=== PATIENT | female | born 1975 | race Caucasian/White ===

== ENCOUNTER 2018-03-12 13:07 | Emergency (ER) | payer BC ==
[~2018-03-12] VITALS: Ht 182.9 cm; Wt 83.9 kg
== END 2018-03-12 13:18 | disposition home or self-care (01) ==
LOC: ED 13:07
DX: R22.0 Localized swelling, mass and lump, head (principal); F17.200 Nicotine dependence, unspecified, uncomplicated

== ENCOUNTER 2023-08-25 10:49 | Emergency (ER) | payer OTHER ==
[~2023-08-25] VITALS: Ht 182.9 cm; Wt 98.2 kg
[2023-08-25 12:10] VITALS: BP 163/105
[2023-08-26 09:03] LABS: HIV 1,2 COMBO ANTIGEN/ANTIBODY Negative (Negative)
[2023-08-26 11:03] LABS: HEPATITIS BE ANTIGEN Negative (Negative)
[2023-08-26 11:24] LABS: HEPATITIS BE ANTIBODY Negative (Negative)
[2023-08-26 15:54] LABS: HEPATITIS C AB CIA INTERP Negative (Negative); HEPATITIS C ANTIBODY CIA INDEX 0.04 IV (())
== END 2023-08-25 12:11 | disposition home or self-care (01) ==
LOC: ED 10:49
PROVIDERS: Emergency Medicine
DX: S61.210A Laceration without foreign body of right index finger without damage to nail, initial encounter (principal); F17.200 Nicotine dependence, unspecified, uncomplicated; W23.0XXA Caught, crushed, jammed, or pinched between moving objects, initial encounter
CPT/HCPCS: 36415; 86707; 86803; 87350; 90471; 90715; 99283

== ENCOUNTER 2024-02-22 13:05 | Emergency (ER) | payer OTHER ==
[~2024-02-22] VITALS: Ht 182.9 cm; Wt 95.7 kg
[2024-02-22 17:02] VITALS: BP 131/95
== END 2024-02-22 16:59 | disposition home or self-care (01) ==
LOC: ED 13:05
DX: S63.501A Unspecified sprain of right wrist, initial encounter (principal); F17.200 Nicotine dependence, unspecified, uncomplicated; W01.190A Fall on same level from slipping, tripping and stumbling with subsequent striking against furniture, initial encounter
CPT/HCPCS: 73110; 99283-25

== ENCOUNTER 2024-08-16 18:23 | Day surgery (SDC) | payer OTHER ==
[~2024-08-16] VITALS: Ht 182.9 cm; Wt 97.8 kg
[~2024-08-16 18:23] MED LIST: SEVOFLURANE 250 ML BTL INH ONE
[2024-08-16] MEDS ORDERED: GLUCAGON,HUMAN RECOMBINANT 1 MG/ML VIAL IV ONE (18:45)
[2024-08-16] MEDS ORDERED: ondansetron HCL 4 MG/2 ML VIAL IV ONE (18:45)
[2024-08-16] MEDS ORDERED: MIDAZOLAM HCL 2 MG/2 ML VIAL ONE (20:02)
[2024-08-16] MEDS ORDERED: propofoL 200 MG/20 ML VIAL ONE (20:02)
[2024-08-16] MEDS ORDERED: SUCCINYLCHOLINE IN 0.9% NACL 200 MG/10 ML SYRINGE ONE (20:02)
[2024-08-16] MEDS ORDERED: fentaNYL citrate 100 MCG/2 ML VIAL ONE (20:02)
[2024-08-16] MEDS ORDERED: LIDOCAINE HCL 2% 5 ML SDV ONE (20:02)
[2024-08-16] MEDS ORDERED: ondansetron HCL 4 MG/2 ML VIAL ONE ×2 (20:02→20:16)
[2024-08-16] MEDS ORDERED: DEXAMETHASONE SOD PHOS 4 MG/ML VIAL ONE (20:16)
--- NOTE | 2024-08-16 20:52 | NUR ---
08/16/242051 CASS CURRIE 2030 PT ARRIVED TO PACU VIA STREACHER. REPORT TAKEN FROM [facility]. PT HAS ORAL AIRWAY IN PLACE, PT HAS 6L OF OXYGEN VIA FACE MASK. PT NON AROUSABLE TO VERBAL AND TACTILE STIMULI. PT REQUIRES JAW THRUSTING INTERMITTENTLY TO MAINTAIN AIRWAY PATIENCY. ALL MONITORS ATTACHED. 2040 PT RESPONSIVE TO TACTILE STIMULI. PT ABLE TO FOLLOW COMMANDS TO OPEN MOUTH TO REMOVE ORAL AIRWAY. PT REMAINS ON 6L VIA FACE MASK. PT BREATHING EQUAL AND UNLABORED. PT ABLE TO ANSWER QUESTIONS ABOUT PAIN. PT REPORTS NO PAIN AT THIS TIME. 2049 OXYGEN REMOVED FROM PT, PT ON RA. PT O2 SAT STAYING ABOVE 90% ON RA. PT RESPONSIVE TO VERBAL STIMULI. PT REPORTING NO PAIN.
[2024-08-16] MEDS ORDERED: LACTATED RINGER'S 1,000 ML IV SCH (21:00)
[2024-08-16] MEDS ORDERED: PANTOPRAZOLE SODIUM 40 MG/10 ML VIAL IV ONE (21:15)
--- NOTE | 2024-08-16 21:30 | NUR ---
PATIENT ARRIVED TO THE FLOOR VIA STRETCHER. PATIENT ABLE TO SLIDE FROM STRETCHER TO HOSPITAL BED. REPORT RECEIVED. PATIENT DENIES ANY PAIN OR NAUSEA. PATIENT PROVIDE ICE WATER. NO FURTHER NEEDS. NOTED. CALL LIGHT IN REACH.
[2024-08-16 21:31] VITALS: BP 118/77
--- NOTE | 2024-08-16 21:56 | NUR ---
PATIENT IS RESTING IN BED. TITRATED TO RA. PATIENT DENIES ANY PAIN OR NAUSEA. PATIENT DENIES THE NEED TO VOID AT THIS TIME. PATIENT PROVIDED A SNACK. NO FURTHER NEEDS NOTED. CALL LIGHT IN REACH.
--- NOTE | 2024-08-16 22:10 | NUR ---
PATIENT IS RESTING IN BED EATING PUDDING. PATIENT DENIES ANY PAIN OR NAUSEA. PATIENT DENIES THE NEED TO VOID. NO FURTHER NEEDS NOTED. CALL LIGHT IN REACH.
--- NOTE | 2024-08-16 22:30 | NUR ---
PATIENT UP TO BR A SBA. PATIENT IS STEADY ON HER FEET. PATIENT ABLE TO VOID. PATIENT IS BACK IN BED RESTING. PLACED CALL TO PATIENTS .
[2024-08-16 22:54] VITALS: BP 122/76
--- NOTE | 2024-08-16 23:13 | NUR ---
PATIENT ABLE TO VOID. PATIENTS IV DC'D. DC INSTUCTIONS PROVIDED AND ALL QUESTIONS ANSWERED. PATIENTS HERE TO DRIVE PATIENT HOME. PATIENT TRANSPORTED BY WHEELCHAIR TO CAR. ALL BELONGINGS WITH PATIENT.
[2024-08-17] MEDS ORDERED: PANTOPRAZOLE SODIUM 40 MG TABEC PO SCH (09:00)
--- NOTE | 2024-08-19 14:32 | PATH ---
[facility] [address] [place] [address] Signed SPECIMEN(S): A LOWER ESOPHAGUS BIOPSY SPECIMEN(S): B MIDDLE ESOPHAGUS BIOPSY SPECIMEN SOURCE: A. LOWER ESOPHAGUS BIOPSY B. MIDDLE ESOPHAGUS BIOPSY CLINICAL HISTORY: Food bolus, esophageal obstruction cleared FINAL PATHOLOGIC DIAGNOSIS: A. Lower esophagus biopsy: - Esophageal and gastric mucosa with reactive epithelial features, negative for specialized intestinal metaplasia or dysplasia. - Negative for significantly increased epithelial eosinophils. B. Mid esophageal biopsy: - Benign esophageal epithelium, negative for significantly increased epithelial eosinophils. JVR:smn MICROSCOPIC EXAMINATION: Histologic sections of all submitted blocks are examined by light microscopy. These findings, together with the gross examination, support the pathologic diagnosis. GROSS DESCRIPTION: A. The specimen, labeled and designated "Stef, lower esophagus biopsy," is received in formalin and consists of two stone soft tissue fragments, ranging from 0.4-0.5 cm. Entirely submitted in (A1). B. The specimen, labeled and designated "Stef, middle esophagus biopsy," is received in formalin and consists of ten stone soft tissue fragments, ranging from 0.1-0.9 cm. Entirely submitted in (B1). VB (under the direct supervision of a pathologist) The Gross Description was prepared using a voice recognition system. The report was reviewed for accuracy; however, sound-alike word errors, addition and/or deletions may occur. If there is any question about this report, please contact Client Services. PERFORMING LABORATORY: Technical component was performed by [facility], [address] [place] [id number] (CLIA# [id number]). Professional interpretation was PATIENT NAME: KEVIN VASQUEZ PATHOLOGY DATE OF : 71 REPORT #: [id number] PHYSICIAN: [facility] PCP: BELGICA DILL MD REPORT IS CONFIDENTIAL AND NOT TO BE RELEASED WITHOUT AUTHORIZATION [facility] [address] [place], [place] [address] Signed performed by [facility] - [address] [address] (CLIA#: [id number]). Diagnostician: Flaquito Kaiser MD Pathologist Electronically Signed 08/19/2024 Copies: ~ PATIENT NAME: KEVIN VASQUEZ PATHOLOGY DATE OF : 71 REPORT #: [id number] PHYSICIAN: [facility] PCP: BELGICA DILL MD REPORT IS CONFIDENTIAL AND NOT TO BE RELEASED WITHOUT AUTHORIZATION
--- NOTE | 2024-08-20 12:25 | CONS ---
[facility] [address] [place], [place] [address] Signed DATE OF CONSULTATION: 08/16/2024 REQUESTING PHYSICIAN: Dr. Nagel and Dr. Stephon Fields. PROBLEM: Esophageal obstruction due to steak. HISTORY OF PRESENT ILLNESS: This 49-year-old white woman is accompanied by her and presented to the emergency room within 2 hours of ingestion of her 1st bite of a meal, which happened to be a steak. She had immediate obstruction with hypersalivation. She presented to the emergency room in some significant distress, initially was thought possibly to have had aspiration, but ultimately this proved not to be the case, but rather an obstruction of the esophagus. She has persistent hypersalivation despite administration of glucagon. She has had an episode like this in the past, which she was able to spontaneously clear the obstructive food bolus. She denies ongoing reflux type symptoms. She denies other medical problems as well. SOCIAL HISTORY: She is accompanied by her . She lives in [place]. REVIEW OF SYSTEMS: She denies any shortness of breath or chest pain. She has had no hematemesis. PHYSICAL EXAMINATION: GENERAL: A very uncomfortable 49-year-old white woman with significant hypersalivation, but no hematemesis. HEENT: She has no crepitus on clinical exam at this time. CHEST: Shows normal respiratory excursion. ABDOMEN: She shows no evidence of obesity. ASSESSMENT: The patient has obstruction of the esophagus, likely related to steak ingestion. Whether or not she has an actual stricture or a dysmotility issue as the underlying problem of her obstruction is uncertain. I have recommended general anesthesia and upper endoscopy as promptly as possible to remove the foreign body. She denies any drug use or alcohol use and has no prior history of complete obstruction, but does have symptoms of dysphagia from the past. The risk of bleeding, infection, perforation, and failure to cure the problem have been reviewed with her in detail. She understands and wished to proceed. Electronically Signed By: BERTRAND CHOI MD 08/20/24 1225 PATIENT NAME: KEVIN VASQUEZ CONSULTATION DATE OF : 71 REPORT #: [id number] PHYSICIAN: BERTRAND CHOI MD PCP: BELGICA DILL MD REPORT IS CONFIDENTIAL AND NOT TO BE RELEASED WITHOUT AUTHORIZATION [address] [address] Signed Bertrand Choi MD JM/MODL /[id number] cc: Dr. Shona Fields Copies: ~ Electronically Signed By: BERTRAND CHOI MD 08/20/24 1225 PATIENT NAME: KEVIN VASQUEZ CONSULTATION DATE OF : 71 REPORT #: [id number] PHYSICIAN: BERTRAND CHOI MD PCP: BELGICA DILL MD REPORT IS CONFIDENTIAL AND NOT TO BE RELEASED WITHOUT AUTHORIZATION
--- NOTE | 2024-08-20 12:25 | OR ---
[facility] [address] [place], [place] [address] Signed DATE OF OPERATION: 08/16/2024 SURGEON: Bertrand Choi MD PREOPERATIVE DIAGNOSIS: Complete esophageal obstruction (steak). POSTOPERATIVE DIAGNOSIS: Complete esophageal obstruction (steak). PROCEDURE: esophagogastroduodenoscopy with biopsy of midesophagus, clearance of esophageal food impaction. ANESTHESIA: General endotracheal, Parminder Ortiz CRNA. INDICATION: This 49-year-old white woman presented to the emergency room and evaluated initially by Dr. Nagel and subsequently Dr. Fields with hypersalivation and dyspnea and extreme stress. She is noted to have what appeared to be complete esophageal obstruction. Initially, she was thought possibly to have aspiration as she was having some trouble breathing. I believe the anxiety contributed to that. I was called regarding this and glucagon had already been administered with no beneficial effect. My evaluation showed her to be quite anxious and she was calmed down, but still had a hypersalivation with progressive copious salivary eructation without signs of hematemesis. She is admitted at this time to undergo upper endoscopy for esophageal clearance of impacted food probably steak. She understands as does her the risk of bleeding, infection, and perforation and they wished to proceed. FINDINGS: Induction relaxation medication allowed the patient to cease her hypersalivation briefly. General endotracheal anesthesia was induced. An upper endoscopy performed, which showed the esophagus essentially had cleared. There was no sign of stricture or neoplasm or varices or Stephenson's epithelium. Food was noted within the stomach at that point. Stomach was otherwise normal except for a small hiatal hernia. The distal esophagus had no sign of stricture or other abnormality. Biopsies were obtained nevertheless and midesophageal biopsies obtained on the possibility this way it may represent the eosinophilic esophagitis. She did not have a dense concentric rings (felinization), though there were some and that remains a possibility. Electronically Signed By: BERTRAND CHOI MD 08/20/24 1225 PATIENT NAME: KEVIN VASQUEZ OPERATIVE REPORT DATE OF : 71 REPORT #: [id number] PHYSICIAN: BERTRAND CHOI MD PCP: BELGICA DILL MD REPORT IS CONFIDENTIAL AND NOT TO BE RELEASED WITHOUT AUTHORIZATION [facility] [address] [place], [place] [address] Signed DESCRIPTION OF PROCEDURE: The patient was brought to the endoscopy suite and placed in a semi upright position and given intravenous medication for sedation. The patient noted some relaxation and sensation of her struggling hypersalivation. She was then given a general endotracheal anesthetic without problem. She remained in the supine position. An Olympus video upper endoscope was passed in the hypopharynx. The vocal cords had accommodated the endotracheal tube without problem. The scope was then advanced to the esophagus. Careful advancement of the scope showed no sign of stricture or neoplasm and pushing of the scope through the GE junction showed complete clearance of the esophagus at that point. There was food bolus within the stomach at that point. Rugal folds appeared normal. Scope was passed beyond this to the pylorus. The scope was withdrawn and retroflexed view undertaken showing a small hiatal hernia. The scope was withdrawn and biopsies then taken of the esophageal mucosa, though there was no evidence of stricture or neoplasm or Stephenson's epithelium. Numerous biopsies were taken in the mid and more proximal esophagus to assess for the eosinophilic esophagitis. The scope was withdrawn and removed. The patient taken to the recovery room in good condition. CONCLUDING DIAGNOSIS: Esophageal food impaction, now cleared. PLAN: We will initiate PPI medication. She is advised to chew her food well and to avoid meat and bread for the next 48 hours. We will have her call for an appointment in 4-6 weeks in my office for consolidation of a plan going forward. MD PALAK Lemus/BERNARDL /[id number] cc: Dr. Fields [facility] Dr. Nagel Electronically Signed By: BERTRAND CHOI MD 08/20/24 1225 PATIENT NAME: KEVIN VASQUEZ OPERATIVE REPORT DATE OF : 71 REPORT #: [id number] PHYSICIAN: BERTRAND CHOI MD PCP: BELGICA DILL MD REPORT IS CONFIDENTIAL AND NOT TO BE RELEASED WITHOUT AUTHORIZATION [facility] [address] [place], [place] [address] [facility] Copies: ~ Electronically Signed By: BERTRAND CHOI MD 08/20/24 1225 PATIENT NAME: KEVIN VASQUEZ ROYER OPERATIVE REPORT DATE OF : 71 REPORT #: [id number] PHYSICIAN: BERTRAND CHOI MD PCP: BELGICA DILL MD REPORT IS CONFIDENTIAL AND NOT TO BE RELEASED WITHOUT AUTHORIZATION
== END 2024-08-16 23:00 | disposition home or self-care (01) ==
LOC: ED 18:23 → DS 21:11 → MS 21:12 → DS 22:00
PROVIDERS: ATTEND Surgery
DX: T18.128A Food in esophagus causing other injury, initial encounter (principal); K44.9 Diaphragmatic hernia without obstruction or gangrene; F17.200 Nicotine dependence, unspecified, uncomplicated
CPT/HCPCS: 00731; 70490; 71250; 96374; 96375; 99284-25; J0330; J1100; J1610; J2003; J2250; J2405; J2470; J2704; J3010